=== PATIENT | male | born 1985 | race Hispanic/Latino ===

== ENCOUNTER 2017-04-08 16:14 | Emergency (ER) | payer OTHER ==
[2017-04-08 16:29] VITALS: BMI 23.3
[2017-04-08 16:31] VITALS: TEMP 98.1; O2SAT 100
[2017-04-08] MEDS ORDERED: Sodium Chloride 0.9% 1,000 ML IV STA (16:56)
--- NOTE | 2017-04-08 16:56 | ED PDOC ---
Arrival/HPI - General Chief Complaint: Abdominal Pain Time Seen by Provider: 04/08/17 16:33 Historian: Patient - History of Present Illness Narrative History of Present Illness (Text): 04/08/17 16:56 31 year old male presents to the emergency department with chronic right upper quadrant discomfort for the past year. No relieving or exacerbating factors. No nausea, vomiting, or diarrhea. Patient reports he had an ultrasound done on which showed 3 mm cysts on gallbladder and patient is adamant about having cholecystectomy done. Time/Duration: Other (x 1 year) Symptom Onset: Gradual Symptom Course: Unchanged Modifying Factors (Text): None Past Medical History - Provider Review Nursing Documentation Reviewed: Yes - Past History Past History: No Previous - Infectious Disease Hx of Infectious Diseases: None - Tetanus Immunization Tetanus Immunization: Unknown - Past Medical History Past Medical History: No Previous - Cardiac Hx Cardiac Disorders: Yes Other/Comment: enlargement of right atrium - Neurological Hx Migraine: Yes - Hematological/Oncological Other/Comment: low iron - Musculoskeletal/Rheumatological Hx Falls: No - Gastrointestinal Hx Clostridium Difficile: Yes Hx Colitis: Yes - Psychiatric Hx Psychophysiologic Disorder: No Hx Anxiety: No Hx Bipolar Disorder: No Hx Depression: No Hx Emotional Abuse: No Hx Hallucinations: No Hx Panic Disorder: No Hx Post Traumatic Stress Disorder: No Hx Psychosis: No Hx Physical Abuse: No Hx Schizophrenia: No Hx Sexual Abuse: No Hx Substance Use: No - Past Surgical History Past Surgical History: No Previous - Surgical History Hx Orthopedic Surgery: Yes (R FOOT bone spur, Left foot plantar fasciitis) - Anesthesia Hx Anesthesia: Yes Hx Anesthesia Reactions: No Hx Malignant Hyperthermia: No - Suicidal Assessment Feels Threatened In Home Enviroment: No Family/Social History - Physician Review Nursing Documentation Reviewed: Yes Family/Social History: Unknown Family HX Smoking Status: Never Smoked Hx Alcohol Use: Yes (socially) Hx Substance Use: No Hx Substance Use Treatment: No Allergies/Home Meds Allergies/Adverse Reactions: Allergies No Known Allergies Allergy (Verified 04/08/17 16:29) Home Medications: Home Meds Medication Instructions Recorded Confirmed No Known Home Med 11/27/16 04/08/17 Review of Systems - Physician Review All systems were reviewed & negative as marked: Yes Physical Exam - Physical Exam Narrative Physical Exam (Text): - Review of Systems Constitutional: Normal. absent: Fatigue, Weight Change, Fevers Eyes: Normal ENT: Normal Respiratory: Normal absent: SOB, Cough, Sputum Cardiovascular: Normal absent: Chest pain, Palpitations, Syncope Gastrointestinal: Chronic right upper quadrant discomfort absent: Diarrhea, Nausea, Vomiting Genitourinary: Normal. absent: Dysuria, Frequency, Hematuria Musculoskeletal: Normal. absent: Arthralgias, Back Pain, Neck Pain Skin: Normal Neurological: Normal absent: Focal Weakness Endocrine: Normal Hemo/Lymphatic: Normal Psychiatric: Normal - Physical exam Patient appears age appropriate, speaking full sentences without difficulty - Systems Exam Head: Present: Atraumatic, Normocephalic Pupils: Present: PERRL Extraocular Muscles: Present: EOMI Conjunctiva: Present: Normal Mouth: Present: Moist Mucous Membranes Neck: Present: Normal Range of Motion. No: MIDLINE TENDERNESS, Paraspinal Tenderness Respiratory/Chest: Present: Clear to Auscultation, Good Air Exchange. No: Respiratory Distress, Accessory Muscle Use, Tachypnic Cardiovascular: Present: Regular Rate and Rhythm, Normal S1, S2, Peripheral Pulses Present. No: Murmurs Abdomen: Present: Normal Bowel Sounds, No: Tenderness, Peritoneal Signs, Rebound, Guarding, Distention Back: Present: Normal Inspection. No: Midline Tenderness, Paraspinal Tenderness Upper Extremity: Present: Normal Inspection. No: Cyanosis, Edema Lower Extremity: Present: Normal Inspection. No: Edema Neurological: Present: GCS=15, Speech Normal, cranial nerves II through XII fully intact with no cerebellar abnormality, neuro-sensory fully intact. No focal neurological deficits. Skin: Present: Warm, Dry, Normal Color. No: Rashes Lymphatic: Present: OX3, NI, NC Psychiatric: Present: Alert, Oriented x 3, Normal Insight, Normal Concentration Vital Signs Reviewed: Yes Vital Signs Temp Pulse Resp BP Pulse Ox 04/08/17 17:40 59 L 18 135/71 100 04/08/17 16:31 98.1 F 58 L 17 137/78 100 Temperature: Afebrile Blood Pressure: Normal Pulse: Regular Respiratory Rate: Normal Appearance: Positive for: Well-Appearing, Non-Toxic, Comfortable Pain Distress: None Mental Status: Positive for: Alert and Oriented X 3 Medical Decision Making ED Course and Treatment: Impression: 31 year old male presents to the emergency department with chronic right upper quadrant discomfort for the past year. On physical exam, patient has no acute findings. Patient has an ultrasound report with him from mid March. I have gone over the dangers of frequent CAT scans with patient, and we came to initial decision not to CAT scan him at this time. Differential Diagnosis included but are not limited to: Liver hemangioma. Patient states that she is aware of the finding and has been seeing primary care physician outpatient for follow-up. Nonspecific abdominal pain. Plan: -- Labs -- Reassess and disposition Prior Visits: Notes and results from previous visits were reviewed. Patient had abdominal ultrasound on 11/17/16 patient had abdominal ultrasound which showed no gallbladder abnormalities. Patient had abdominal ultrasound on 08/28/16 which showed no acute findings. Patient had CT of the Abdomen/Pelvis on 11/16/16 which showed no acute findings except for liver lesion for which MRI was recommended. Progress Notes: 04/08/17 18:32 On reevaluation, patient reports that he feels much better and would like to be discharged home. Patient's repeat abdominal exam is soft, nontender, non distended with positive bowel sounds in all 4 quadrants and no peritoneal signs. Patient is tolerating PO without any difficulty. I recommended that patient sees an outpatient surgeon for further workup and management. Pt states he understands to return to the ER right away for new or worsening symptoms or for inability to f/u with PMD or specialist as instructed. Patient states that he fully agrees with and understands discharge instructions. States that he agrees with the plan and disposition. Verbalized and repeated discharge instructions and plan. I have given the patient opportunity to ask any additional questions. - Lab Interpretations Lab Results: 04/08/17 17:15 04/08/17 17:15 Lab Results 04/08/17 17:15: PT 11.0, INR 1.02, APTT 28.8 04/08/17 17:15: WBC 4.4 L D, RBC 4.19, Hgb 12.9 L, Hct 37.7 L, MCV 90.0, MCH 30.8, MCHC 34.2, RDW 12.6, Plt Count 191, MPV 10.3, Gran % 56.3, Lymph % (Auto) 28.9, [place] % (Auto) 11.6 H, Eos % (Auto) 2.7, Baso % (Auto) 0.5, Gran # 2.47, Lymph # 1.3, [place] # 0.5, Eos # 0.1, Baso # 0.02 04/08/17 17:15: Sodium 141, Potassium 4.3, Chloride 106, Carbon Dioxide 27, Anion Gap 12, BUN 19, Creatinine 0.8, Est GFR ( Amer) > 60, Est GFR (Non- Af Amer) > 60, Random Glucose 88, Calcium 9.3, Total Bilirubin 0.6, AST 25, ALT 30, Alkaline Phosphatase 69, Total Protein 7.6, Albumin 4.4, Globulin 3.2, Albumin/Globulin Ratio 1.4, Lipase 65 - Medication Orders Current Medication Orders: Discontinued Medications Sodium Chloride (Sodium Chloride 0.9%) 1,000 mls @ 1,000 mls/hr IV .Q1H STA Stop: 04/08/17 17:55 Last Admin: 04/08/17 17:22 Dose: 1,000 mls/hr Ketorolac Tromethamine (Toradol) 15 mg IVP STAT STA Stop: 04/08/17 16:57 Last Admin: 04/08/17 17:21 Dose: 15 mg - Scribe Statement The provider has reviewed the documentation as recorded by the Aneta Thompson Provider Scribe Attestation: All medical record entries made by the Aneta were at my direction and personally dictated by me. I have reviewed the chart and agree that the record accurately reflects my personal performance of the history, physical exam, medical decision making, and the department course for this patient. I have also personally directed, reviewed, and agree with the discharge instructions and disposition. Disposition/Present on Arrival - Present on Arrival Any Indicators Present on Arrival: No History of DVT/PE: No History of Uncontrolled Diabetes: No Urinary Catheter: No History of Decub. Ulcer: No History Surgical Site Infection Following: None - Disposition Have Diagnosis and Disposition been Completed?: Yes Diagnosis: Abdominal pain Disposition: HOME/ ROUTINE Disposition Time: 18:35 Patient Plan: Discharge Condition: GOOD Discharge Instructions (ExitCare): Abdominal Pain (ED) Additional Instructions: PLEASE RETURN TO THE EMERGENCY DEPARTMENT FOR NEW OR WORSENING SYMPTOMS. RETURN RIGHT AWAY IF YOU CANNOT FOLLOW UP WITH YOUR PRIMARY CARE DOCTOR, CLINIC, OR SPECIALIST IN 1-2 DAYS. Referrals: Mine Bell MD [Primary Care Provider] - Follow up with primary Yossi Salazar MD [Medical Doctor] - Follow up with primary Ray Mejia MD [Staff Provider] - Follow up with primary
[2017-04-08 17:20] LABS: ADD MANUAL DIFF? NO
[2017-04-08 17:25] LABS: BASO # 0.02 K/mm3 (0.0-2.0); BASO % 0.5 % (0.0-3.0); EOS # 0.1 (0.0-0.7); EOS % 2.7 % (1.5-5.0); GRAN # 2.47 (1.4-6.5); GRAN % 56.3 % (50.0-68.0); HEMATOCRIT 37.7 % (42.0-52.0); LYMPH # 1.3 (1.2-3.4); LYMPH % 28.9 % (22.0-35.0); MEAN CORPUSCULAR HEMOGLOBIN 30.8 pg (25.0-35.0); MEAN CORPUSCULAR HGB CONC 34.2 g/dl (31.0-37.0); MEAN PLATELET VOLUME 10.3 fl (7.0-11.0); MONO # 0.5 (0.1-0.6); MONO % 11.6 % (1.0-6.0); PLATELET COUNT 191 10^3/uL (120.0-450.0); RED CELL DISTRIBUTION WIDTH 12.6 % (11.5-14.5); WHITE BLOOD COUNT 4.4 10^3/ul (4.5-11.0)
[2017-04-08 17:32] LABS: ALB/GLOB RATIO 1.4 (1.1-1.8); ALKALINE PHOSPHATASE 69 U/L (38-133); ALT/SGPT 30 U/L (7-56); AST/SGOT 25 U/L (15-59); BILIRUBIN,TOTAL 0.6 mg/dL (0.2-1.3); BLOOD UREA NITROGEN 19 mg/dL (7-21); CALCIUM 9.3 mg/dL (8.4-10.5); CARBON DIOXIDE 27 mmol/L (21-33); CHLORIDE 106 mmol/L (95-110); GFR AFRICAN-AMERICAN > 60; GLUCOSE,RANDOM 88 mg/dL (70-110); LIPASE 65 U/L (23-300); POTASSIUM 4.3 mmol/L (3.6-5.0); SODIUM 141 mmol/L (132-148); TOTAL PROTEIN 7.6 g/dL (5.8-8.3)
[2017-04-08 17:40] VITALS: RESP 18
[2017-04-08 17:43] LABS: INR 1.02 (0.93-1.08); PARTIAL THROMBOPLASTIN TIME 28.8 Seconds (23.7-30.8)
[2017-04-08 18:51] VITALS: BP 132/68; PULSE 61
== END 2017-04-08 19:25 | disposition home or self-care (01) ==
LOC: ED 16:14
DX: R10.9 Unspecified abdominal pain (principal)
CPT/HCPCS: 80053; 83690; 85025; 85610; 85730; 96374; 99283; J1885; J7040